=== PATIENT | female | born 1990 | race Caucasian/White ===

== ENCOUNTER 2023-04-04 16:53 | Outpatient (RCR) | payer BC, SELFPAY | END 2023-04-04 23:59 | disposition home or self-care (01) | LOC: RPT 16:53 | PROVIDERS: ATTENDING PHYSICIAN Orthopaedic Surgery; FAMILY PHYSICIAN Internal Medicine | DX: S89.81XD Other specified injuries of right lower leg, subsequent encounter (principal); S83.281D Other tear of lateral meniscus, current injury, right knee, subsequent encounter; M22.41 Chondromalacia patellae, right knee; M17.5 Other unilateral secondary osteoarthritis of knee; Z73.6 Limitation of activities due to disability; R26.2 Difficulty in walking, not elsewhere classified; M62.81 Muscle weakness (generalized) | CPT/HCPCS: 97010; 97110; 97140; 97162; 97530 ==

== ENCOUNTER 2023-05-02 16:07 | Outpatient (RCR) | payer BC, SELFPAY | END 2023-05-02 23:59 | disposition home or self-care (01) | LOC: RPT 16:07 | PROVIDERS: ATTENDING PHYSICIAN Orthopaedic Surgery; FAMILY PHYSICIAN Internal Medicine | DX: S89.81XD Other specified injuries of right lower leg, subsequent encounter (principal); S83.281D Other tear of lateral meniscus, current injury, right knee, subsequent encounter; M22.41 Chondromalacia patellae, right knee; M17.5 Other unilateral secondary osteoarthritis of knee; Z73.6 Limitation of activities due to disability; R26.2 Difficulty in walking, not elsewhere classified; M62.81 Muscle weakness (generalized) | CPT/HCPCS: 97010; 97110; 97140; 97530 ==

== ENCOUNTER 2023-05-30 15:57 | Outpatient (RCR) | payer BC, SELFPAY | END 2023-05-31 07:38 | disposition home or self-care (01) | LOC: RPT 15:57 | PROVIDERS: ATTENDING PHYSICIAN Orthopaedic Surgery; FAMILY PHYSICIAN Internal Medicine | DX: S89.81XD Other specified injuries of right lower leg, subsequent encounter (principal); S83.281D Other tear of lateral meniscus, current injury, right knee, subsequent encounter; M22.41 Chondromalacia patellae, right knee; M17.5 Other unilateral secondary osteoarthritis of knee; Z73.6 Limitation of activities due to disability; R26.2 Difficulty in walking, not elsewhere classified | CPT/HCPCS: 97110; 97530 ==

== ENCOUNTER → 2023-11-22 06:54 | Outpatient (REF) | payer BC, SELFPAY ==
[2023-11-22 07:58] LABS: % Basophils 0.2 % (0-2); % Eosinophils 2.7 % (0-6); % Immature Granulocytes 0.3 % (0-0.5); % Lymphocytes 31.8 % (20.5-51.1); Absolute Eosinophils 0.2 10^3/uL (0-0.7); Absolute Lymphocytes 1.9 10^3/uL (1.2-3.4); Absolute Monocytes 0.6 10^3/uL (0.1-0.6); Absolute Neutrophils 3.1 10^3/uL (1.4-6.5); Hemoglobin 14.1 g/dL (12.0-16.0); Mean Corp Hgb Conc. 32.8 g/dL (33.0-37.0); Mean Corpuscular Hgb 29.6 pg (27.0-31.0); Mean Corpuscular Volume 90.3 fL (81.0-99.0); Mean Platelet Volume 10.5 fL (7.4-10.4); Nucleated Red Blood Cells % 0 %; Platelet Count 265 10^3/uL (130-400); Red Blood Cell Count 4.76 10^6/uL (4.20-5.40); Red Cell Dist. Width 13.5 % (11.5-14.5); White Blood Cell Count 5.8 10^3/uL (4.8-10.8)
[2023-11-22 08:34] LABS: ALT (SGPT) 58 U/L (0-35); AST (SGOT) 38 U/L (14-36); Albumin 4.4 g/dl (3.5-5.0); Alkaline Phosphatase 77 U/L (38-126); Blood Urea Nitrogen 15 mg/dl (7-17); Calcium 9.4 mg/dl (8.4-10.2); Carbon Dioxide 23 mmol/L (22-30); Chloride 105 mmol/L (98-107); Glucose 95 mg/dl (70-99); HDL Cholesterol 70 mg/dl; LDL Cholesterol, Calculated 96 mg/dl; Potassium 4.4 mmol/L (3.5-5.1); Sodium 143 mmol/L (135-145); Total Bilirubin 0.5 mg/dl (0.2-1.3); Total Cholesterol 183 mg/dl (50-199); Total Protein 7.2 g/dl (6.3-8.2); Triglyceride 87 mg/dl (10-149); Very Low Density Lipoprotein 17 mg/dl (0-30); eGFR > 60.00
[2023-11-22 10:53] LABS: TSH 1.73 uIU/ml (0.47-4.68)
== END ==
LOC: REG 06:54
PROVIDERS: ATTENDING PHYSICIAN Nurse Practitioner
DX: Z00.00 Encounter for general adult medical examination without abnormal findings (principal); R53.83 Other fatigue; E78.5 Hyperlipidemia, unspecified
CPT/HCPCS: 36415; 80053; 80061; 84443; 85025

== ENCOUNTER → 2024-02-20 06:43 | Outpatient (REF) | payer BC, SELFPAY ==
[2024-02-20 07:40] LABS: % Basophils 0.2 % (0-2); % Eosinophils 2.7 % (0-6); % Immature Granulocytes 0.3 % (0-0.5); % Lymphocytes 42.1 % (20.5-51.1); % Monocytes 11.4 % (1.7-9.3); % Neutrophils 43.3 % (42.2-75.2); Absolute Eosinophils 0.2 10^3/uL (0-0.7); Absolute Lymphocytes 2.7 10^3/uL (1.2-3.4); Absolute Monocytes 0.7 10^3/uL (0.1-0.6); Absolute Neutrophils 2.8 10^3/uL (1.4-6.5); Hematocrit 41.9 % (37.0-47.0); Hemoglobin 13.6 g/dL (12.0-16.0); Mean Corp Hgb Conc. 32.5 g/dL (33.0-37.0); Mean Corpuscular Hgb 29.4 pg (27.0-31.0); Mean Corpuscular Volume 90.5 fL (81.0-99.0); Mean Platelet Volume 10.5 fL (7.4-10.4); Nucleated Red Blood Cells % 0 %; Platelet Count 254 10^3/uL (130-400); Red Blood Cell Count 4.63 10^6/uL (4.20-5.40); Red Cell Dist. Width 13.4 % (11.5-14.5); White Blood Cell Count 6.3 10^3/uL (4.8-10.8)
[2024-02-20 08:09] LABS: ALT (SGPT) 39 U/L (0-35); AST (SGOT) 26 U/L (14-36); Albumin 4.2 g/dl (3.5-5.0); Alkaline Phosphatase 70 U/L (38-126); Blood Urea Nitrogen 16 mg/dl (7-17); Calcium 9.1 mg/dl (8.4-10.2); Carbon Dioxide 26 mmol/L (22-30); Chloride 107 mmol/L (98-107); Glucose 101 mg/dl (70-99); HDL Cholesterol 65 mg/dl; LDL Cholesterol, Calculated 90 mg/dl; Potassium 4.4 mmol/L (3.5-5.1); Sodium 140 mmol/L (135-145); Total Bilirubin 0.3 mg/dl (0.2-1.3); Total Cholesterol 172 mg/dl (50-199); Triglyceride 86 mg/dl (10-149); Very Low Density Lipoprotein 17 mg/dl (0-30); eGFR > 60.00
[2024-02-20 13:28] LABS: TSH 2.75 uIU/ml (0.47-4.68)
== END ==
LOC: REG 06:43
PROVIDERS: ATTENDING PHYSICIAN Nurse Practitioner; OTHER PHYSICIAN Internal Medicine Endocrinology, Diabetes & Metabolism
DX: Z00.00 Encounter for general adult medical examination without abnormal findings (principal); R53.83 Other fatigue; E78.5 Hyperlipidemia, unspecified
CPT/HCPCS: 36415; 80053; 80061; 84443; 85025

== ENCOUNTER → 2024-03-07 07:29 | Outpatient (REF) | payer BC, SELFPAY ==
[2024-03-07 16:27] LABS: Prolactin 12.8 ng/ml (3.0-18.6)
[2024-03-07 16:54] LABS: Cortisol, Random 0.8 ug/dl
== END ==
LOC: REG 07:29
PROVIDERS: ATTENDING PHYSICIAN Nurse Practitioner Family; FAMILY PHYSICIAN Internal Medicine
DX: R63.5 Abnormal weight gain (principal); E22.9 Hyperfunction of pituitary gland, unspecified
CPT/HCPCS: 36415; 82533; 84146

== ENCOUNTER 2024-06-05 07:38 | Emergency (ER) | payer BC, SELFPAY ==
[2024-06-05 07:42] VITALS: BP 118/84
--- NOTE | 2024-06-05 08:02 | ED.GENMED ---
History of Present Illness
General
Chief Complaint: Flank Pain
Source: patient
Exam Limitations: none
Time Seen by Provider: 06/05/24 07:51
History of Present Illness
History of Present Illness:
33-year-old female presents complaining of onset of right flank pain that now is in the right lower abdomen. The pain has been intermittent since its onset. Sharp stabbing in nature without nausea or vomiting. No urinary symptoms. Last menstrual
cycle was last week. No prior abdominal surgical history. No other complaints at this time
Past History
Past History
ED Past Medical History: Other (ITP. History of H pylori infection which she describes as a parasite infection)
ED Past Surgical History: Orthopedic (finger surgery)
Social History
Tobacco: Non-smoker
Personal: Single
Living: with family
Employment: Employed
Phy Exam
Physical Exam
Physical Exam:
General: Well-appearing female no acute respiratory distress
HEENT: Normocephalic atraumatic
Heart: Regular rate and rhythm
Lungs: Clear no wheeze abdomen is soft slightly tender to the right costovertebral angle and right mid abdomen. No guarding or rebound normal bowel sounds nondistended
Course
Orders/Labs/Results
Orders:
Orders
06/05/24 07:50
Urinalysis Reflex To Culture Urgent
Date Specimen was Collected: 06/05/24
Time Specimen was Collected: 07:47
Urine Microscopic Reflex Cult Urgent
Urine Culture Urgent
NIKKI Source: U
Specimen Description:
Date Specimen was Collected: 06/05/24
Time Specimen was Collected: 07:47
06/05/24 08:00
Ketorolac [Toradol] 15 mg IV NOW STA
06/05/24 08:01
Ketorolac [Toradol] 15 mg .ROUTE .STK-MED ONE
Test Result ONCE
06/05/24 08:10
Complete Blood Count/With Diff Urgent
Comprehensive Metabolic Panel Urgent
HCG, Serum Qualitative Screen Urgent
06/05/24 09:38
CT Abd/pel Without Iv Or Oral Urgent
Comment:
Reason For Exam: right flank pain
Abnormal Lab Results
06/05/24 06/05/24
07:50 08:10
MPV 10.6 H fL
(7.4-10.4)
Absolute Neuts (auto) 8.2 H 10^3/uL
(1.4-6.5)
Absolute Monos (auto) 0.7 H 10^3/uL
(0.1-0.6)
Neutrophils % 77.7 H %
(42.2-75.2)
Lymphocytes % 14.3 L %
(20.5-51.1)
Chloride 110 H mmol/L
(98-107)
Glucose 108 H mg/dl
(70-99)
Ur Occult Blood Reflex 1+ A
(Negative)
Leukocyte Esterase Rfl 1+ A
(Negative)
Urine Bacteria (Reflex) Moderate A
(Negative)
Urine Albumin (Reflex) 2+ A
(Neg - Trace)
06/05/24 08:10
06/05/24 08:10
Vital Signs
Initial and Last Documented VS:
Initial Vital Signs
Temp Pulse Resp BP Pulse Ox
98.1 F 98 18 118/84 100
06/05/24 07:42 06/05/24 07:42 06/05/24 07:42 06/05/24 07:42 06/05/24 07:42
Last Documented Vital Signs
Temp Pulse Resp BP Pulse Ox
98.1 F 98 18 118/84 100
06/05/24 07:42 06/05/24 07:42 06/05/24 07:42 06/05/24 07:42 06/05/24 07:42
MDM/Problems Addressed
Differential Diagnosis Includes:
Right flank and abdominal pain. Consider renal versus biliary colic versus constipation and less likely appendicitis.
Urinalysis pending. Will check labs and treat with Toradol.
*Critical Care Note
Total Time (30-74mins, 75-104mins- exclusive of procedures): Not Applicable
Update Note
Update Note:
Patient reevaluated appears comfortable upon reassessment. CT shows potential small bowel thickening to suggest enteritis but no other acute finding. Question possible viral illness. No evidence of cholecystitis appendicitis. Patient reassured
recommended hydration and supportive care. Return precautions were given
ED Attending Note
-
Portions of this chart may have been created with voice recognition software.� Occasional wrong word or��sound alike� substitutions may have occurred due to the inherent limitations of voice recognition software.
Discharge Plan
Departure
Patient Disposition: Home (Routine Discharge)
Date of Disposition: 06/05/24
Time of Disposition: 12:57
Patient with high blood pressure during this ER visit?: No
Discharge Problem:
Abdominal pain
Instructions: Abdominal Pain
Prescriptions:
No Action
norgestimate-ethinyl estradiol [Ortho Tri-Cyclen LO (28)] 1 EACH tablet
1 ea PO DAILY
ibuprofen [Advil] 200 MG tablet
400 mg PO Q4H PRN (Reason: pain)
Referrals:
Garrett Chiu MD [Family Provider] -
Activity Restrictions/Additional Instructions:
Use Tylenol or ibuprofen for pain. Return here if worse otherwise follow-up with your doctor
Interventions
Interventions:
*Risk Screen - Suicide Last Done: 06/05/24 07:42
*General Assessment Last Done: 06/05/24 07:42
*Neglect/Abuse Screening Last Done: 06/05/24 07:42
*ED COVID-19 Vaccine History Last Done: 06/05/24 07:42
KH-Hncwch-Jcnwapnzym Assessment Last Done: 06/05/24 08:15
ED-Female Genitourinary Assessment Last Done: 06/05/24 08:15
Discharge Date and Time
Print Language: EQUATORIAL GUINEAN
[2024-06-05] MEDS: TORADOL 15 MG IV (08:07)
[2024-06-05 08:13] LABS: Urine Albumin 2+ (Neg - Trace); Urine Bilirubin Negative (Negative); Urine Character Clear (Clear); Urine Color Yellow; Urine Glucose Negative (Negative); Urine Ketone Negative (Negative); Urine Leukocyte 1+ (Negative); Urine Nitrite Negative (Negative); Urine Occult Blood 1+ (Negative); Urine Specific Gravity 1.025 (<1.030); Urine Urobilinogen Negative (Neg - 1+)
[2024-06-05 08:25] LABS: % Basophils 0.2 % (0-2); % Eosinophils 0.8 % (0-6); % Immature Granulocytes 0.4 % (0-0.5); % Lymphocytes 14.3 % (20.5-51.1); % Monocytes 6.6 % (1.7-9.3); % Neutrophils 77.7 % (42.2-75.2); Absolute Eosinophils 0.1 10^3/uL (0-0.7); Absolute Lymphocytes 1.5 10^3/uL (1.2-3.4); Absolute Monocytes 0.7 10^3/uL (0.1-0.6); Absolute Neutrophils 8.2 10^3/uL (1.4-6.5); Hematocrit 44.9 % (37.0-47.0); Hemoglobin 14.9 g/dL (12.0-16.0); Mean Corp Hgb Conc. 33.2 g/dL (33.0-37.0); Mean Corpuscular Hgb 29.8 pg (27.0-31.0); Mean Corpuscular Volume 89.8 fL (81.0-99.0); Mean Platelet Volume 10.6 fL (7.4-10.4); Nucleated Red Blood Cells % 0 %; Platelet Count 261 10^3/uL (130-400); Red Cell Dist. Width 13.5 % (11.5-14.5); White Blood Cell Count 10.5 10^3/uL (4.8-10.8)
[2024-06-05 08:32] LABS: HCG, Serum Qualitative Screen Negative
[2024-06-05 08:35] LABS: Urine Hyaline Cast 0-2 /LPF (0-2); Urine Mucus Moderate; Urine Squamous Cell >30 /LPF (Few)
[2024-06-05 08:35] LABS: ALT (SGPT) 30 U/L (0-35); AST (SGOT) 25 U/L (14-36); Albumin 4.3 g/dl (3.5-5.0); Alkaline Phosphatase 56 U/L (38-126); Blood Urea Nitrogen 14 mg/dl (7-17); Calcium 9.4 mg/dl (8.4-10.2); Carbon Dioxide 25 mmol/L (22-30); Chloride 110 mmol/L (98-107); Glucose 108 mg/dl (70-99); Potassium 4.3 mmol/L (3.5-5.1); Sodium 143 mmol/L (135-145); Total Bilirubin 0.8 mg/dl (0.2-1.3); Total Protein 7.1 g/dl (6.3-8.2); eGFR > 60.00
[2024-06-05 08:37] LABS: Urine Bacteria Moderate (Negative); Urine Red Blood Cell None Seen /HPF (0-2)
[2024-06-05 13:10] VITALS: BP 98/67
== END 2024-06-05 13:12 | disposition home or self-care (01) ==
LOC: EMR 07:38
PROVIDERS: Physician Assistant; EMERGENCY PHYSICIAN Student in an Organized Health Care Education/Training Program; FAMILY PHYSICIAN Internal Medicine
DX: R10.31 Right lower quadrant pain (principal); Z86.19 Personal history of other infectious and parasitic diseases
CPT/HCPCS: 96374; 99284; 74176; 80053; 81003; 81015; 84703; 85025; 87086

== ENCOUNTER → 2024-11-07 09:58 | Outpatient (REF) | payer BC, SELFPAY ==
[2024-11-15 08:18] LABS: HPV, High Risk Not Detected; HPV, High Risk Source Cervical
== END ==
LOC: CPAP 09:58
PROVIDERS: ATTENDING PHYSICIAN Obstetrics & Gynecology
DX: Z01.419 Encounter for gynecological examination (general) (routine) without abnormal findings (principal); Z11.51 Encounter for screening for human papillomavirus (HPV)
CPT/HCPCS: 87624